=== PATIENT | female | born 1985 | race African-American/Black ===

== ENCOUNTER 2017-05-20 21:16 | Emergency (ER) | payer MEDICAID ==
[~2017-05-20] VITALS: Ht 170.2 cm; Wt 62.8 kg
[2017-05-20 21:27] VITALS: BP 146/100
[2017-05-20] MEDS: ACETAMINOPHEN/CODEINE#3 (300/30mg) TAB PO ONE (22:36)
[2017-05-20] MEDS: ACETAMINOPHEN/CODEINE#3 (300/30mg) TAB ONE (22:37)
== END 2017-05-20 22:59 | disposition home or self-care (01) ==
LOC: ER 21:16
DX: K04.7 Periapical abscess without sinus (principal); K02.9 Dental caries, unspecified; F17.210 Nicotine dependence, cigarettes, uncomplicated; Z88.6 Allergy status to analgesic agent